=== PATIENT | male | born 1985 | race Caucasian/White ===

== ENCOUNTER 2017-02-06 02:17 | Emergency (ER) | payer SELFPAY ==
[~2017-02-06] VITALS: Ht 210.8 cm; Wt 124.0 kg
[2017-02-06 02:20] VITALS: BP 178/111; PULSE 97; RESP 16; TEMP 97.4; O2SAT 97
[2017-02-06] MEDS ORDERED: SERO400T PO (02:44)
[2017-02-06] MEDS ORDERED: PROZ40CA PO (02:44)
[2017-02-06] MEDS ORDERED: VITA100064 PO (02:44)
[2017-02-06] MEDS ORDERED: DEPA500T3 PO ×2 (02:44)
--- NOTE | 2017-02-06 02:54 | PD ---
HPI Chief Complaint: Psychiatric Symptoms Time Seen by Provider: 02:53 Travel History International Travel<30 days: No Contact w/Intl Traveler<30days: No Traveled to known affect area: No History of Present Illness HPI 31-year-old male arrives complaining of confusion and paranoid. He has a history of schizophrenia. He takes Seroquel Depakote Cymbalta. Vitamin D. He has been compliant with medications. He denies drug and alcohol abuse however thinks he might have been exposed to marijuana. 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 He has otherwise had no hallucination. He denies homicidal and suicidal ideation. PFSH Past Medical History Cardiovascular Problems: Yes (HTN>DIET) Schizophrenia: Yes Past Surgical History Surgical History: No Previous Surgery Social History Alcohol Use: No Tobacco Use: No Substance Use: No Allergies-Medications (Allergen,Severity, Reaction): Coded Allergies: No Known Allergies (Unverified , 02/06/17) Reported Meds & Prescriptions Reported Meds & Active Scripts Active Reported Vitamin D (Cholecalciferol) 1,000 Unit Tab 1,000 Units PO DAILY Seroquel (Quetiapine Fumarate) 400 Mg Tab 400 Mg PO BID Prozac (Fluoxetine HCl) 40 Mg Cap 40 Mg PO DAILY Depakote ER (Divalproex Sodium) 500 Mg Su 1,000 Mg PO HS Depakote ER (Divalproex Sodium) 500 Mg Su 500 Mg PO DAILY Review of Systems Except as stated in HPI: all other systems reviewed are Neg General / Constitutional: No: Fever, Chills Psychiatric: No: Anxiety, Suicidal Ideations, Disorder of Thought, Mood Disorder, Substance Abuse Physical Exam Narrative GENERAL: 31-year-old male well-nourished well-developed cooperative SKIN: Warm and dry. HEAD: Atraumatic. Normocephalic. EYES: Pupils equal and round. No scleral icterus. No injection or drainage. ENT: No nasal bleeding or discharge. Mucous membranes pink and moist. NECK: Trachea midline. No JVD. CARDIOVASCULAR: Regular rate and rhythm. No murmur appreciated. RESPIRATORY: No accessory muscle use. Clear to auscultation. Breath sounds equal bilaterally. GASTROINTESTINAL: Abdomen soft, non-tender, nondistended. Hepatic and splenic margins not palpable. MUSCULOSKELETAL: No obvious deformities. No clubbing. No cyanosis. No edema. NEUROLOGICAL: Awake and alert. No obvious cranial nerve deficits. Motor grossly within normal limits. Normal speech. PSYCHIATRIC: No suicidal or homicidal ideation. Possible hallucination. Data Data Last Documented VS Vital Signs Date Time Temp Pulse Resp B/P Pulse Ox O2 Delivery O2 Flow Rate FiO2 02/06/17 02:20 97.4 97 16 178/111 97 Room Air Orders Complete Blood Count With Diff (02/06/17 02:53) Comprehensive Metabolic Panel (02/06/17 02:53) Thyroid Stimulating Hormone (02/06/17 02:53) Psych Screen (02/06/17 02:53) Drug Screen, Random Urine (02/06/17 02:53) Alcohol (Ethanol) (02/06/17 02:53) Valproic Acid (Depakene) (02/06/17 02:53) Labs Laboratory Tests Test 02/06/17 02:50 White Blood Count 6.9 TH/MM3 Red Blood Count 5.01 MIL/MM3 Hemoglobin 16.3 GM/DL Hematocrit 45.9 % Mean Corpuscular Volume 91.5 FL Mean Corpuscular Hemoglobin 32.4 PG Mean Corpuscular Hemoglobin 35.5 % Concent Red Cell Distribution Width 13.5 % Platelet Count 202 TH/MM3 Mean Platelet Volume 8.0 FL Neutrophils (%) (Auto) 53.8 % Lymphocytes (%) (Auto) 31.9 % Monocytes (%) (Auto) 12.3 % Eosinophils (%) (Auto) 1.7 % Basophils (%) (Auto) 0.3 % Neutrophils # (Auto) 3.7 TH/MM3 Lymphocytes # (Auto) 2.2 TH/MM3 Monocytes # (Auto) 0.8 TH/MM3 Eosinophils # (Auto) 0.1 TH/MM3 Basophils # (Auto) 0.0 TH/MM3 CBC Comment AUTO DIFF Differential Total Cells 100 Counted Neutrophils % (Manual) 47 % Band Neutrophils % 1 % Lymphocytes % 34 % Monocytes % 9 % Eosinophils % 1 % Basophils % 1 % Neutrophils # (Manual) 3.8 TH/MM3 Metamyelocytes 2 % Myelocytes 4 % Promyelocytes 1 % Differential Comment FINAL DIFF MANUAL Atypical Lymphocytes % Platelet Estimate NORMAL Platelet Morphology Comment NORMAL Red Cell Morphology Comment NORMAL Sodium Level 138 MEQ/L Potassium Level 3.9 MEQ/L Chloride Level 101 MEQ/L Carbon Dioxide Level 24.8 MEQ/L Anion Gap 12 MEQ/L Blood Urea Nitrogen 10 MG/DL Creatinine 0.97 MG/DL Estimat Glomerular Filtration 90 ML/MIN Rate Random Glucose 91 MG/DL Calcium Level 8.8 MG/DL Total Bilirubin 0.9 MG/DL Aspartate Amino Transf 115 U/L (AST/SGOT) Alanine Aminotransferase 139 U/L (ALT/SGPT) Alkaline Phosphatase 99 U/L Total Protein 7.7 GM/DL Albumin 4.0 GM/DL Thyroid Stimulating Hormone 2.470 uIU/ML 3rd Gen Urine Opiates Screen NEG Urine Barbiturates Screen NEG Valproic Acid (Depakene) Level 61 MCG/ML Urine Amphetamines Screen NEG Urine Benzodiazepines Screen NEG Urine Cocaine Screen NEG Urine Cannabinoids Screen NEG Ethyl Alcohol Level LESS THAN 3 MG/DL MDM Medical Decision Making Medical Screen Exam Complete: Yes Emergency Medical Condition: Yes Differential Diagnosis Altered mental status/psychosis due to infection/environmental exposure/ metabolic abnormality, polypharmacy, alcohol abuse/intoxication, illicit or prescribed drug abuse, malingering/secondary gain, non-organic psychiatric disease Narrative Course CBC & BMP Diagram 02/06/17 02:50 AST 115 ALT 139 TSH 2.470 Toxicology evans-negative Etoh< 3 Valproic acid 61 Patient reassessed at 5 AM and reports feeling slightly better after eating food and watching TV here. The history of present illness, ROS, physical exam, review of records and medical workup performed for today's visit have reasonably safely excluded organic etiologies for the patient's presenting complaint. We will continue to monitor the patient carefully in the ER until time of evaluation by the psychiatry service. We are available for any additional medical assistance if needed during the patient's ER course. Disposition per discretion of psychiatry is appreciated. Diagnosis Primary Impression: Paranoia (psychosis) Prudencio Draper MD Feb 06, 2017 02:54
[2017-02-06 03:25] LABS: AUTOMATED NEUTROPHIL # 3.7 TH/MM3 (1.8-7.7); BASOPHIL % 0.3 % (0.0-2.0); EOSINOPHIL # 0.1 TH/MM3 (0-0.4); EOSINOPHIL % 1.7 % (0.0-4.0); HEMATOCRIT 45.9 % (39.0-51.0); LYMPH % 31.9 % (9.0-44.0); LYMPHOCYTE # 2.2 TH/MM3 (1.0-4.8); MEAN CELL VOLUME 91.5 FL (80.0-100.0); MEAN CORPUSCULAR HEMOGLOBIN 32.4 PG (27.0-34.0); MEAN CORPUSCULAR HGB CONC 35.5 % (32.0-36.0); MONO % 12.3 % (0.0-8.0); NEUT % 53.8 % (16.0-70.0); PLATELET COUNT 202 TH/MM3 (150-450); RED BLOOD COUNT 5.01 MIL/MM3 (4.50-5.90); RED CELL DISTRIBUTION WIDTH 13.5 % (11.6-17.2); WHITE BLOOD COUNT 6.9 TH/MM3 (4.0-11.0)
[2017-02-06 03:26] LABS: HEMO FLAGS AUTO DIFF
[2017-02-06 03:31] LABS: AMPHETAMINE, URINE NEG (NEG); BARBITURATES, URINE NEG (NEG); COCAINE, URINE NEG (NEG)
[2017-02-06 03:56] LABS: ALKALINE PHOSPHATASE 99 U/L (45-117); TOTAL BILIRUBIN ADULT 0.9 MG/DL (0.2-1.0)
[2017-02-06 04:17] LABS: ALT (GPT) 139 U/L (12-78); ANION GAP 12 MEQ/L (5-15); AST (GOT) 115 U/L (15-37); BICARBONATE 24.8 MEQ/L (21.0-32.0); BLOOD UREA NITROGEN 10 MG/DL (7-18); CHLORIDE 101 MEQ/L (98-107); GLOMERULAR FILTRATION RATE 90 ML/MIN (>89); SODIUM (NA) 138 MEQ/L (136-145)
[2017-02-06 04:23] LABS: BANDS 1 % (0-6); BASOPHILS 1 % (0-2); EOSINOPHILS 1 % (0-4); METAMYELOCYTES 2 % (0-1); MYELOCYTES 4 % (0-0); NEUTROPHIL # MANUAL DIFF 3.8 TH/MM3 (1.8-7.7); PLATELET ESTIMATE SMEAR NORMAL (NORMAL); PLATELET MORPHOLOGY NORMAL (NORMAL); POLYS (SEG NEUTROPHILS) 47 % (16-70); PROMYELOCYTES 1 % (0-0); SCAN/DIFF FINAL DIFF MANUAL; WBC DIFF SAMPLE 100
[2017-02-06 04:31] LABS: POTASSIUM 3.9 MEQ/L (3.5-5.1)
[2017-02-06 05:58] VITALS: BP 105/57; PULSE 80; RESP 20; O2SAT 99
[2017-02-06 09:20] VITALS: BP 102/66; PULSE 78; O2SAT 97
--- NOTE | 2017-02-06 11:38 | PD ---
History of Present Illness Chief Complaint: Psychiatric Symptoms Time Seen by Provider: 11:20 Travel History International Travel<30 Days: No Contact w/Intl Traveler<30days: No Known affected area: No Legal Status Legal Status: Voluntary History of Present Illness: History of Present Illness HPI 31-year-old male with a reported history of schizophrenia that presents to ED on a voluntary basis arrives complaining of confusion and paranoid. He reports that he is from [place] and rode his motorcycle from there to [place] for Bike week. He reports that he began to feel disoriented as well as feeling paranoid. He states that he has taken his medications and his current VPA is 61. He goes on to say that perhaps symptoms were due to being out in the sun, not drinking enough water and not eating. He has been monitored in Ed and states he slept fair and now feels better. Patient is alert and oriented. Sunburned, fair hygiene. He is cooperative. Affect is restricted. Speech is clear and answers questions although he does not initiate conversation and his answers are laconic ." I came to the hospital because I was confused". He denies any current hallucinations, no delusions and no paranoia.Denies any suicidal or homicidal ideation, intent or plan. He further reports that his medication is in his motorcycle and that he has been medication compliant. He plans on going back to [place] when the motorcycle races finish". he denies any current substance use and his toxicology is negative. PFSH Past Medical History Cardiovascular Problems: Yes (HTN>DIET) Schizophrenia: Yes Past Surgical History Surgical History: No Previous Surgery Psychiatric History Psychiatric History Hx Psychiatric Treatment: HX PARANOID SCHIZOPHRENIA, HAS PSYCHIATRIST AT [facility] IN [place] Receives care at mental health clinic ut doesn't remember the name History of Inpatient Treatment: Yes (Last hospitalized 2 years ago.) Social History Single, no children. Born in [place]. Moved to [place] 16 years ago to be closer to family. Lives by himself. On disability. Hx Alcohol Use: No Hx Tobacco Use: No Hx Substance Use: No (HX ETOH ABUSE DENIES ANY CURRENT SUBSTANCE USE) Hx of Substance Use Treatment: No Family Psychiatric History None reported Allergies-Medications (Allergen,Severity, Reaction): Coded Allergies: No Known Allergies (Unverified , 02/06/17) Reported Meds & Prescriptions Reported Meds & Active Scripts Active Reported Vitamin D (Cholecalciferol) 1,000 Unit Tab 1,000 Units PO DAILY Seroquel (Quetiapine Fumarate) 400 Mg Tab 400 Mg PO BID Prozac (Fluoxetine HCl) 40 Mg Cap 40 Mg PO DAILY Depakote ER (Divalproex Sodium) 500 Mg Su 1,000 Mg PO HS Depakote ER (Divalproex Sodium) 500 Mg Su 500 Mg PO DAILY Review of Systems Except as stated in HPI: all other systems reviewed are Neg Exam Alert: Yes [place]: Person (ox4) Mood: Calm Affect: Restricted Speech: Clear, Logical Eye Contact: Indirect Memory Intact: Comment (no gross abnormality) Hallucinations: Auditory (denies any) Delusions: No Suicidal: Ideation (denies any) Homicidal: Ideation (denies any) Insight/Judgement Fair. Not impaired MDM Medical Decision Making Medical Record Reviewed: Yes Assessment/Plan 31 year old male who is voluntary. At this time he does not report any hallucinations, no delusions and no paranoia. No suicidal or homicidal ideation. He has treatment in [place] where he is from and reports that his medication is in his car. He tells me he is here for the motorcycle races. It is possible that he came to the hospital for nursing home last night. In any case he is reporting he feels better and is inquiring about discharge. At this time he does not meet criteria for BA or for increase in level of care in psychiatric facility. He is cleared from psychiatry for discharge Orders Complete Blood Count With Diff (02/06/17 02:53) Comprehensive Metabolic Panel (02/06/17 02:53) Thyroid Stimulating Hormone (02/06/17 02:53) Psych Screen (02/06/17 02:53) Drug Screen, Random Urine (02/06/17 02:53) Alcohol (Ethanol) (02/06/17 02:53) Valproic Acid (Depakene) (02/06/17 02:53) Results Vital Signs Date Time Temp Pulse Resp B/P Pulse Ox O2 Delivery O2 Flow Rate FiO2 02/06/17 09:20 78 102/66 97 Room Air 02/06/17 05:58 80 20 105/57 99 02/06/17 02:20 97.4 97 16 178/111 97 Room Air Laboratory Tests Test 02/06/17 02:50 White Blood Count 6.9 Red Blood Count 5.01 Hemoglobin 16.3 Hematocrit 45.9 Mean Corpuscular Volume 91.5 Mean Corpuscular Hemoglobin 32.4 Mean Corpuscular Hemoglobin 35.5 Concent Red Cell Distribution Width 13.5 Platelet Count 202 Mean Platelet Volume 8.0 Neutrophils (%) (Auto) 53.8 Lymphocytes (%) (Auto) 31.9 Monocytes (%) (Auto) 12.3 Eosinophils (%) (Auto) 1.7 Basophils (%) (Auto) 0.3 Neutrophils # (Auto) 3.7 Lymphocytes # (Auto) 2.2 Monocytes # (Auto) 0.8 Eosinophils # (Auto) 0.1 Basophils # (Auto) 0.0 CBC Comment AUTO DIFF Differential Total Cells 100 Counted Neutrophils % (Manual) 47 Band Neutrophils % 1 Lymphocytes % 34 Monocytes % 9 Eosinophils % 1 Basophils % 1 Neutrophils # (Manual) 3.8 Metamyelocytes 2 Myelocytes 4 Promyelocytes 1 Differential Comment FINAL DIFF MANUAL Atypical Lymphocytes Platelet Estimate NORMAL Platelet Morphology Comment NORMAL Red Cell Morphology Comment NORMAL Sodium Level 138 Potassium Level 3.9 Chloride Level 101 Carbon Dioxide Level 24.8 Anion Gap 12 Blood Urea Nitrogen 10 Creatinine 0.97 Estimat Glomerular Filtration 90 Rate Random Glucose 91 Calcium Level 8.8 Total Bilirubin 0.9 Aspartate Amino Transf 115 (AST/SGOT) Alanine Aminotransferase 139 (ALT/SGPT) Alkaline Phosphatase 99 Total Protein 7.7 Albumin 4.0 Thyroid Stimulating Hormone 2.470 3rd Gen Urine Opiates Screen NEG Urine Barbiturates Screen NEG Valproic Acid (Depakene) Level 61 Urine Amphetamines Screen NEG Urine Benzodiazepines Screen NEG Urine Cocaine Screen NEG Urine Cannabinoids Screen NEG Ethyl Alcohol Level LESS THAN 3 Diagnosis Primary Impression: Schizophrenia Ruled Out: Paranoia (psychosis) Psychiatrically Cleared: Yes Med/ Other Pt Specific Info: No Change to Meds Problem Qualifiers Primary Impression: Schizophrenia Qualified Code: F20.0 - Paranoid schizophrenia Cora Vazquez Feb 06, 2017 11:38
== END 2017-02-06 12:00 | disposition home or self-care (01) ==
LOC: EDBD → NEPC 02:17
DX: F20.9 Schizophrenia, unspecified (principal); I10 Essential (primary) hypertension
CPT/HCPCS: 80053; 80164; 80307; 84443; 85007; 85027; 99284